=== PATIENT | male | born 1945 | race Caucasian/White ===

== ENCOUNTER → 2018-10-09 | Outpatient (CLI) | payer MEDICARE, OTHER ==
[~2018-10-09] MED LIST: ASPI81EC PO; Dilaudid 2 mg Ta2 MG PO; GABA600 PO; HYDCHL25 PO; INSR10I SUBQ; INSULANI SUBQ; LISI20 PO; MAGOXI400 PO; METF500C PO; MULVITMINF PO; Norco 5-325 Ta1 EACH PO; POTCHL10ER PO; PRAV20 PO; Prednisone20 MG PO; SULTRIDS PO; Valium5 MG PO; Zithromax250 MG PO
== END | disposition home or self-care (01) ==
LOC: PLD 08:22 → LAB SHORT 08:22
DX: C44.319 Basal cell carcinoma of skin of other parts of face (principal)
CPT/HCPCS: 88305

== ENCOUNTER → 2018-11-05 | Outpatient (CLI) | payer MEDICARE, OTHER | END | disposition home or self-care (01) | LOC: LAB SHORT 07:13 → PLD 07:13 | DX: C44.310 Basal cell carcinoma of skin of unspecified parts of face (principal) | CPT/HCPCS: 88305 ==

== ENCOUNTER 2019-04-02 10:46 | Emergency (ER) | payer MEDICARE, OTHER ==
[~2019-04-02] VITALS: Ht 182.9 cm; Wt 122.5 kg
[~2019-04-02 10:46] MED LIST changes: +ENTRESTO 49 MG1 EACH PO; +INSULANPEN; +METO50ER PO; +OMEPRAZOLE MAGN20 MG PO; +PROB500 PO; +STIOLTO RESPIMAT4 GM IH; +TAMS.4ER PO; +TORSE20 PO
[2019-04-02 11:16] LABS: Hematocrit 40.1 % (37.0-53.0); Hemoglobin 13.6 g/dL (13.5-17.5); Mean Corpuscular HGB 31.3 pg (26.0-34.0); Mean Corpuscular HGB Conc 33.9 g/dL (31.5-36.5); Mean Corpuscular Volume 92 fL (80-100); Mean Platelet Volume 10.3 fL (9.1-12.4); Platelet Count 141 K/mm3 (150-400); RDW Coefficient Variation 13.9 % (11.7-14.2); RDW Standard Deviation 46.7 fL (35.1-46.3); Red Blood Cell Count 4.34 M/mm3 (4.30-5.90); White Blood Cell Count 6.62 K/mm3 (4.00-11.30)
[2019-04-02 11:34] LABS: Bun/Creatinine Ratio 24.4 (12.0-20.0); Calcium, Blood 9.1 mg/dL (8.5-10.1); Creatinine, Blood 1.64 mg/dL (0.60-1.20); Potassium, Blood 4.3 mmol/L (3.5-5.5)
[2019-04-02] MEDS ORDERED: Motion Sickness25 M4 PO (11:51)
== END 2019-04-02 12:07 | disposition home or self-care (01) ==
LOC: ER 10:46
PROVIDERS: Emergency Medicine
DX: K64.9 Unspecified hemorrhoids (principal); R42 Dizziness and giddiness; E11.9 Type 2 diabetes mellitus without complications; J44.9 Chronic obstructive pulmonary disease, unspecified; I10 Essential (primary) hypertension; E78.5 Hyperlipidemia, unspecified; Z90.49 Acquired absence of other specified parts of digestive tract; Z87.891 Personal history of nicotine dependence; Z79.4 Long term (current) use of insulin; Z79.899 Other long term (current) drug therapy
CPT/HCPCS: 36415; 46600; 80048; 85027; 99283-25

== ENCOUNTER 2019-04-15 10:56 | Emergency (ER) | payer MEDICARE, OTHER ==
[~2019-04-15] VITALS: Ht 182.9 cm; Wt 122.5 kg
[~2019-04-15 10:56] MED LIST changes: +Motion Sickness25 M4 PO
[2019-04-15 13:10] LABS: Source, Urine Clean Catch
[2019-04-15 13:14] LABS: Bilirubin, Urine Neg (Neg); Blood, Urine Neg (Neg); Glucose Qualitative, Urine Neg (Neg); Ketones, Urine Neg (Neg); Leukocyte Esterase, Urine Neg (Neg); Nitrite, Urine Neg (Neg); Protein, Urine Neg (Neg); Specific Gravity, Urine 1.015 (1.003-1.022); Urobilinogen, Urine NORM (Normal)
[2019-04-15 13:25] LABS: Appearance, Urine Clear (Clear); Color, Urine Yellow (P-Yellow)
== END 2019-04-15 15:05 | disposition home or self-care (01) ==
LOC: ER 10:56
PROVIDERS: Emergency Medicine
DX: S00.211A Abrasion of right eyelid and periocular area, initial encounter (principal); S60.811A Abrasion of right wrist, initial encounter; E11.9 Type 2 diabetes mellitus without complications; I10 Essential (primary) hypertension; Z88.5 Allergy status to narcotic agent; Z87.891 Personal history of nicotine dependence; W01.0XXA Fall on same level from slipping, tripping and stumbling without subsequent striking against object, initial encounter
CPT/HCPCS: 71046; 73100; 81003; 99284-25; A9270-GY

== ENCOUNTER 2019-10-06 06:22 | Emergency (ER) | payer MEDICARE, OTHER ==
[~2019-10-06] VITALS: Ht 182.9 cm; Wt 113.4 kg
[2019-10-06] MEDS ORDERED: Cephalexin500 MG PO (07:19)
[2019-10-06] MEDS ORDERED: Naprosyn500 MG PO (07:19)
== END 2019-10-06 07:43 | disposition home or self-care (01) ==
LOC: ER 06:22
DX: M70.41 Prepatellar bursitis, right knee (principal); I10 Essential (primary) hypertension; E11.9 Type 2 diabetes mellitus without complications; Z88.5 Allergy status to narcotic agent; Z87.891 Personal history of nicotine dependence
CPT/HCPCS: 29505; 99283-25; A9270-GY

== ENCOUNTER 2020-03-19 08:14 | Day surgery (SDC) | payer MEDICARE, OTHER ==
[~2020-03-19] VITALS: Ht 182.9 cm; Wt 122.9 kg
[~2020-03-19 08:14] MED LIST changes: +ALBU2.5V5; +ALBU90OI; +Cephalexin500 MG PO; +ENTRESTO 49 MG1 EACH; +FINA5; +Flonase 0.05% N16 GM; +METFORMIN ER1000 MG; +METO50ER; +Naprosyn500 MG PO; +OMEP20ER; +PROB500; +STIOLTO RESPIMAT4 GM; +TAMS.4ER; +TORSE20
[2020-03-19] MEDS ORDERED: Humulin N100 UNIT/1 INJ (09:02)
[2020-03-19] MEDS ORDERED: ALOGLIPTIN6.25 MG PO (09:37)
--- NOTE | 2020-03-19 10:46 | NUR ---
03/19/20 1046 Doug Rayo PLEDGETS SOAKED IN 30 MG EPI FOR PACKING.
== END 2020-03-19 12:39 | disposition home or self-care (01) ==
LOC: ORSCSDS 08:14
PROVIDERS: Otolaryngology
PROC: 09TL0ZZ Resection of Nasal Turbinate, Open Approach (ICD-10-PCS; principal; 2020-03-19 09:30)
PROC: 09BM0ZZ Excision of Nasal Septum, Open Approach (ICD-10-PCS; principal; 2020-03-19 09:30)
DX: J34.2 Deviated nasal septum (principal); J34.3 Hypertrophy of nasal turbinates; G47.33 Obstructive sleep apnea (adult) (pediatric); E11.9 Type 2 diabetes mellitus without complications; N18.3 Chronic kidney disease, stage 3 (moderate); J44.9 Chronic obstructive pulmonary disease, unspecified; Z87.891 Personal history of nicotine dependence; Z79.4 Long term (current) use of insulin; Z79.84 Long term (current) use of oral hypoglycemic drugs; E66.01 Morbid (severe) obesity due to excess calories; Z68.36 Body mass index [BMI] 36.0-36.9, adult; Z79.899 Other long term (current) drug therapy
CPT/HCPCS: 82947; J1100; J2001; J2405; J2704; J3010; J7120

== ENCOUNTER 2020-09-08 09:05 | Emergency (ER) | payer OTHER, MEDICARE ==
[~2020-09-08] VITALS: Ht 182.9 cm; Wt 117.9 kg
[~2020-09-08 09:05] MED LIST changes: -ALBU90OI; +ALBU90OI INH; +ALOGLIPTIN6.25 MG PO; -ENTRESTO 49 MG1 EACH; -FINA5; +FINA5 PO; +FLUT.05NI; -Flonase 0.05% N16 GM; +HUMULIN N100 UNIT/6 SC; -METO50ER; +STIOLTO RESPIMAT4 G1 INH; -STIOLTO RESPIMAT4 GM; -TAMS.4ER; -TORSE20
[2020-09-08 09:42] LABS: BASOPHILS ABSOLUTE AUTO 0.02 K/mm3 (0.00-0.23); BASOPHILS PERCENT AUTO 1 % (0-2); EOSINOPHILS ABSOLUTE AUTO 0.03 K/mm3 (0.00-0.68); EOSINOPHILS PERCENT AUTO 1 % (0-6); Hematocrit 35.7 % (37.0-53.0); Hemoglobin 11.9 g/dL (13.5-17.5); IMMATURE GRAN ABSOLUTE AUTO 0.01 K/mm3 (0.00-0.10); IMMATURE GRAN PERCENT AUTO 0 % (0-1); LYMPHOCYTES ABSOLUTE AUTO 0.71 K/mm3 (0.84-5.20); LYMPHOCYTES PERCENT AUTO 19 % (21-46); MONOCYTES ABSOLUTE AUTO 0.49 K/mm3 (0.16-1.47); MONOCYTES PERCENT AUTO 13 % (4-13); Mean Corpuscular HGB 31.1 pg (26.0-34.0); Mean Corpuscular HGB Conc 33.3 g/dL (31.5-36.5); Mean Corpuscular Volume 93 fL (80-100); Mean Platelet Volume 9.7 fL (9.1-12.4); NEUTROPHILS PERCENT AUTO 67 % (41-73); Platelet Count 100 K/mm3 (150-400); RDW Coefficient Variation 14.6 % (11.7-14.2); RDW Standard Deviation 50.4 fL (35.1-46.3); Red Blood Cell Count 3.83 M/mm3 (4.30-5.90); White Blood Cell Count 3.76 K/mm3 (4.00-11.30)
[2020-09-08 10:01] LABS: Alanine Aminotransfer (ALT/SGP 38 U/L (12-78); Albumin, Blood 3.4 g/dL (3.4-5.0); Alk Phos 50 U/L (50-136); Anion Gap 7 mmol/L (6-16); Aspartate Aminotrans (AST/SGOT 21 U/L (12-37); Bilirubin, Total 0.4 mg/dL (0.1-1.0); Blood Urea Nitrogen 60 mg/dL (8-24); Bun/Creatinine Ratio 26.4 (12.0-20.0); CO2, Blood 27 mmol/L (21-32); Calcium, Blood 8.7 mg/dL (8.5-10.1); Chloride, Blood 102 mmol/L (98-108); Creatinine, Blood 2.27 mg/dL (0.60-1.20); Globulin, Blood 3.5 g/dL (2.2-4.0); Glomerular Filtration Rate 30 (60-); Glucose, Blood 118 mg/dL (70-99); Sodium, Blood 136 mmol/L (136-145); Total Protein, Blood 6.9 g/dL (6.4-8.2); Troponin I <0.015 ng/mL (0.000-0.040)
[2020-09-11] MEDS ORDERED: ASPI81CH PO (17:19)
== END 2020-09-08 12:16 | disposition home or self-care (01) ==
LOC: ER 09:05
PROVIDERS: Emergency Medicine
DX: U07.1 COVID-19 (principal); J40 Bronchitis, not specified as acute or chronic; D72.819 Decreased white blood cell count, unspecified; D69.6 Thrombocytopenia, unspecified; I11.0 Hypertensive heart disease with heart failure; I50.9 Heart failure, unspecified; J44.9 Chronic obstructive pulmonary disease, unspecified; E11.9 Type 2 diabetes mellitus without complications; Z87.891 Personal history of nicotine dependence; Z79.4 Long term (current) use of insulin; Z79.899 Other long term (current) drug therapy; Z88.5 Allergy status to narcotic agent; Z88.8 Allergy status to other drugs, medicaments and biological substances
CPT/HCPCS: 36415; 71046; 80053; 82947; 83880; 84484; 85025; 93005; 93010; 96360; 99285-25; J7030; U0004

== ENCOUNTER 2020-09-10 10:38 | Inpatient (IN) | payer OTHER, MEDICARE ==
[~2020-09-10] VITALS: Ht 182.9 cm; Wt 120.0 kg
[2020-09-10 11:37] LABS: BASOPHILS ABSOLUTE AUTO 0.01 K/mm3 (0.00-0.23); BASOPHILS PERCENT AUTO 0 % (0-2); EOSINOPHILS PERCENT AUTO 0 % (0-6); Hematocrit 37.9 % (37.0-53.0); Hemoglobin 12.1 g/dL (13.5-17.5); IMMATURE GRAN ABSOLUTE AUTO 0.01 K/mm3 (0.00-0.10); IMMATURE GRAN PERCENT AUTO 0 % (0-1); LYMPHOCYTES ABSOLUTE AUTO 0.61 K/mm3 (0.84-5.20); LYMPHOCYTES PERCENT AUTO 23 % (21-46); MONOCYTES ABSOLUTE AUTO 0.31 K/mm3 (0.16-1.47); MONOCYTES PERCENT AUTO 12 % (4-13); Mean Corpuscular HGB 30.3 pg (26.0-34.0); Mean Corpuscular HGB Conc 31.9 g/dL (31.5-36.5); Mean Corpuscular Volume 95 fL (80-100); Mean Platelet Volume 10.2 fL (9.1-12.4); NEUTROPHILS ABSOLUTE AUTO 1.76 K/mm3 (1.96-9.15); NEUTROPHILS PERCENT AUTO 65 % (41-73); Platelet Count 94 K/mm3 (150-400); RDW Coefficient Variation 14.6 % (11.7-14.2); RDW Standard Deviation 51.9 fL (35.1-46.3)
[2020-09-10 11:49] LABS: Alanine Aminotransfer (ALT/SGP 40 U/L (12-78); Albumin, Blood 3.2 g/dL (3.4-5.0); Albumin/Globulin Ratio 0.8 (0.8-1.8); Alk Phos 50 U/L (50-136); Anion Gap 6 mmol/L (6-16); Aspartate Aminotrans (AST/SGOT 42 U/L (12-37); Bilirubin, Total 0.3 mg/dL (0.1-1.0); Blood Urea Nitrogen 59 mg/dL (8-24); Bun/Creatinine Ratio 28.2 (12.0-20.0); CO2, Blood 28 mmol/L (21-32); Calcium, Blood 8.2 mg/dL (8.5-10.1); Chloride, Blood 104 mmol/L (98-108); Creatinine, Blood 2.09 mg/dL (0.60-1.20); Globulin, Blood 3.8 g/dL (2.2-4.0); Glomerular Filtration Rate 33 (60-); Glucose, Blood 158 mg/dL (70-99); Potassium, Blood 4.6 mmol/L (3.5-5.5); Sodium, Blood 138 mmol/L (136-145); Troponin I <0.015 ng/mL (0.000-0.040)
--- NOTE | 2020-09-10 17:30 | NUR ---
PATIENT ARRIVED FROM ED VIA GURNEY, TRANSFERED INDEPENDENTLY. ON 2 L NASAL CANNULA, NO SIGNS OF ACUTE DISTRESS, PATIENT DENIES CHEST PAIN. PATIENT ENDORSES FEELING OVERALL "NOT GOOD", PATIENT AGREED TO TRY TYLENOL. PATIENT ENDORSED FEELING SOME NAUSEA THIS SHIFT, STATES THAT HE HAS NOT BEEN ABLE TO EAT FOR THE PAST FEW DAYS. PATIENT IS PLEASANT, ALERT AND ORIENTED. INCREASED WORK OF BREATHING NOTED WITH ACTIVITY, O2 SAT MAINTAINED ON 90S. PATIENT DENIES CHEST PAIN, NO SIGNS OF ACUTE DISTRESS, WCTM.
[2020-09-11 04:13] LABS: BASOPHILS PERCENT AUTO 0 % (0-2); EOSINOPHILS PERCENT AUTO 0 % (0-6); Hematocrit 34.9 % (37.0-53.0); Hemoglobin 11.2 g/dL (13.5-17.5); IMMATURE GRAN ABSOLUTE AUTO 0.01 K/mm3 (0.00-0.10); IMMATURE GRAN PERCENT AUTO 0 % (0-1); LYMPHOCYTES ABSOLUTE AUTO 0.44 K/mm3 (0.84-5.20); LYMPHOCYTES PERCENT AUTO 17 % (21-46); MONOCYTES ABSOLUTE AUTO 0.29 K/mm3 (0.16-1.47); MONOCYTES PERCENT AUTO 11 % (4-13); Mean Corpuscular HGB 30.1 pg (26.0-34.0); Mean Corpuscular HGB Conc 32.1 g/dL (31.5-36.5); Mean Corpuscular Volume 94 fL (80-100); Mean Platelet Volume 9.8 fL (9.1-12.4); NEUTROPHILS ABSOLUTE AUTO 1.89 K/mm3 (1.96-9.15); NEUTROPHILS PERCENT AUTO 72 % (41-73); Platelet Count 99 K/mm3 (150-400); RDW Coefficient Variation 14.6 % (11.7-14.2); Red Blood Cell Count 3.72 M/mm3 (4.30-5.90); White Blood Cell Count 2.63 K/mm3 (4.00-11.30)
[2020-09-11 04:33] LABS: Albumin, Blood 3.1 g/dL (3.4-5.0); Albumin/Globulin Ratio 0.9 (0.8-1.8); Bilirubin, Total 0.4 mg/dL (0.1-1.0); Bun/Creatinine Ratio 33.2 (12.0-20.0); Calcium, Blood 7.9 mg/dL (8.5-10.1); Creatinine, Blood 2.14 mg/dL (0.60-1.20); Globulin, Blood 3.4 g/dL (2.2-4.0); Magnesium, Blood 2.6 mg/dL (1.6-2.4); Total Protein, Blood 6.5 g/dL (6.4-8.2)
--- NOTE | 2020-09-11 05:21 | NUR ---
SHIFT SUMMARY PT RESTED COMFORTABLY THROUGH NIGHT. ALERT AND ORIENTED. PT RUNNING NSR ON TELE. PT DOES C/O OF SOB STILL. WEARING 4LNC - SATS >90%. PT DOES HAVE SOME CONGESTION - BUT NOTHING ABLE TO COME UP FOR SPUTUM COLLECTION. BLOOD SUGAR 381 - GAVE THE 60U HUMULIN N. AMBULATING FREQUENTLY IN ROOM AND GETTING TO BATHROOM INDEPENDENTLY. VOIDING. NO BM. NO C/O PAIN. CALL LIGHT WITHIN REACH, BED IN LOWEST POSITION. WILL CONTINUE TO MONITOR.
--- NOTE | 2020-09-11 11:40 | NUR ---
upon receiving an admit referral for spiritual care, I visit patient in full PPE. Patient is sitting on EOB and alert. Patient tells me about his Co-morbidities and his concerns with COVID diagnosis. Patient talks about his family support system and his stress over the care of his little dog (he is a audrey-wienie and he is going to patient's mother's house who has huge dogs). Patient also expresses his concerns about his absolute adherence to mask wearing and hand washing and his frustration with the many who don't and who may have infected him. I listen empathically and provide companionship and prayer. Patient responds well and shows signs of an elevated mood. I will continue to remain available to patient and family.
--- NOTE | 2020-09-11 15:37 | NUR ---
Alen has been pleasantly conversant, states he doesn't know how he got COVID because he is so diligent about wearing a mask, and following all of the guidelines to prevent dat the disease. He does still get hypoxic when he walks to the bathroom without oxygen, or walks around the room without it. STates that his spo2 he found to be 79% after walking to the bathroom without wearing his oxygen. Extension tubing provided for his oxygen and the pt was strongly encouraged to keep it on all the time. He has an occasional productive cough with small amounts of white sputum. Lung sounds are clear no adventitious sounds noted. Independent with ADLs. Good appetite. No complaints. STates he has received good care while he has been here.
--- NOTE | 2020-09-11 15:48 | NUR ---
Dr. Hall here to see the patient. Pt states that he lost his balance and ruffled the vertical blinds in the window. States that he did not fall down all the way, but that he did lose his balance because he was dizzy. STrongly encouraged the pt to call to have staff assist whenever he gets up. The pt verbalized understanding of this.
[2020-09-11] MEDS ORDERED: Aspirin EC81 MG PO (17:19)
--- NOTE | 2020-09-12 05:24 | NUR ---
END OF SHIFT SUMMARY NO ACUTE CHANGES THIS SHIFT. VSS. PT REMAINS AXO, SR-SB W/ BBB. HAS BEEN TITRATED FROM 4LNC TO 3LNC, SPO2 >94%. LUNGA CLEAR TO DIM WITH OCCASIONAL FINE CRACKLES IN L LUNG BASE. OTHERWISE, PT INDEPENDENT IN ROOM. MANAGES O2 TUBING BYSELF WELL. PT PLEASANT AND COOPERATIVE. REMAINS IN ISOLATION FOR COVID 19 POSITIVE. WILL CONTINUE TO MONITOR UNTIL SHIFT CHANGE.
[2020-09-12 05:27] LABS: BASOPHILS PERCENT AUTO 0 % (0-2); EOSINOPHILS PERCENT AUTO 0 % (0-6); Hematocrit 36.7 % (37.0-53.0); Hemoglobin 11.6 g/dL (13.5-17.5); IMMATURE GRAN ABSOLUTE AUTO 0.01 K/mm3 (0.00-0.10); IMMATURE GRAN PERCENT AUTO 0 % (0-1); LYMPHOCYTES ABSOLUTE AUTO 0.62 K/mm3 (0.84-5.20); LYMPHOCYTES PERCENT AUTO 17 % (21-46); MONOCYTES ABSOLUTE AUTO 0.39 K/mm3 (0.16-1.47); MONOCYTES PERCENT AUTO 10 % (4-13); Mean Corpuscular HGB 29.9 pg (26.0-34.0); Mean Corpuscular HGB Conc 31.6 g/dL (31.5-36.5); Mean Corpuscular Volume 95 fL (80-100); Mean Platelet Volume 9.8 fL (9.1-12.4); NEUTROPHILS ABSOLUTE AUTO 2.74 K/mm3 (1.96-9.15); NEUTROPHILS PERCENT AUTO 73 % (41-73); Platelet Count 128 K/mm3 (150-400); RDW Coefficient Variation 14.6 % (11.7-14.2); Red Blood Cell Count 3.88 M/mm3 (4.30-5.90); White Blood Cell Count 3.76 K/mm3 (4.00-11.30)
[2020-09-12 05:50] LABS: Bun/Creatinine Ratio 38.5 (12.0-20.0); Calcium, Blood 8.4 mg/dL (8.5-10.1); Creatinine, Blood 2.13 mg/dL (0.60-1.20); Potassium, Blood 4.9 mmol/L (3.5-5.5)
--- NOTE | 2020-09-12 16:57 | NUR ---
SHIFT SUMMARY PATIENT CHANGED TO MED STATUS. PATIENT HAS BEEN SINUS EVIN IN THE 40'S. DR. GARIBAY NOTIFIED OF TELEMETRY CHANGES AND SHOWN PRINTOUT. NO ORDERS AT THIS TIME. PATIENT HAS BEEN A SBA IN THE ROOM. PATIENT ON 4L O2 VIA NASAL CANNULA. PATIENT HAS DENIED PAIN. CALL LIGHT WITHIN PATIENT REACH.
[2020-09-13 04:23] LABS: BASOPHILS PERCENT AUTO 0 % (0-2); EOSINOPHILS PERCENT AUTO 0 % (0-6); Hematocrit 37.9 % (37.0-53.0); Hemoglobin 12.5 g/dL (13.5-17.5); IMMATURE GRAN ABSOLUTE AUTO 0.01 K/mm3 (0.00-0.10); IMMATURE GRAN PERCENT AUTO 0 % (0-1); LYMPHOCYTES ABSOLUTE AUTO 0.63 K/mm3 (0.84-5.20); LYMPHOCYTES PERCENT AUTO 15 % (21-46); MONOCYTES ABSOLUTE AUTO 0.43 K/mm3 (0.16-1.47); MONOCYTES PERCENT AUTO 10 % (4-13); Mean Corpuscular HGB 30.5 pg (26.0-34.0); Mean Corpuscular Volume 92 fL (80-100); Mean Platelet Volume 9.7 fL (9.1-12.4); NEUTROPHILS ABSOLUTE AUTO 3.27 K/mm3 (1.96-9.15); NEUTROPHILS PERCENT AUTO 75 % (41-73); Platelet Count 128 K/mm3 (150-400); RDW Coefficient Variation 14.4 % (11.7-14.2); RDW Standard Deviation 48.8 fL (35.1-46.3); White Blood Cell Count 4.34 K/mm3 (4.00-11.30)
[2020-09-13 04:40] LABS: Bun/Creatinine Ratio 39.1 (12.0-20.0); Calcium, Blood 8.2 mg/dL (8.5-10.1); Creatinine, Blood 1.92 mg/dL (0.60-1.20); Potassium, Blood 4.6 mmol/L (3.5-5.5)
--- NOTE | 2020-09-13 04:45 | NUR ---
END OF SHIFT SUMMARY NO ACUTE CHANGES THIS SHIFT. REMAINS IN ISOLATION FOR COVID. AXO. SR TO SB 50'S TO 70'S. BP STABLE. PT REMAINS ON 4LNC, SPO2 >94%. LUNG SOUNDS CLEAR WITH OCCASIONAL WHEEZING. INDEPENDENT IN ROOM. THERWISE, PT STATES "GETTING MORE SLEEP HERE THAN WHAT HE DOES AT HOME". WILL CONTINUE TO MONITOR UNTIL SHIFT CHANGE.
--- NOTE | 2020-09-13 19:15 | NUR ---
ASSUMED CARE REPORT RECEIVED FROM ROSALIO URIARTE. PT SITTING UP IN BED WATCHING TV, NO ACUTE DISTRESS OBSERVED. DENIES CHEST PAIN. CALL LIGHT WITHIN REACH. PT REMAINS ON ISOLATION
--- NOTE | 2020-09-13 19:23 | NUR ---
Alen was pleasant, cheerful and without complaints today. Ambulatory in the room and to the bathroom on 4 l/min of oxygen. Very occasional cough, little sputum production. Lungs have very faint occasional wheezing, but otherwise clear. Excellent appetite, voiding and had a bowel movement today. States that he is looking forward to going home tomorrow after he is finished with the IV antiviral medication.
--- NOTE | 2020-09-14 00:30 | NUR ---
PT REQUESTED HELP, APPEARS VERY ANXIOUS. MILD DYSPNEA, SATS AT 91% WITH O2@4LPM. APPARENTLY PT WAS AMBULATING AT BEDSIDE, DROPPED WATER CUP, AND BECAME DYSPNIC. REASSURENCE GIVEN AND COACHED PT ON ALLOWING FOR PERIODS OF REST BETWEEN ACTIVITIES. WILL CONTINUE TO MONITOR
[2020-09-14 04:55] LABS: BASOPHILS ABSOLUTE AUTO 0.01 K/mm3 (0.00-0.23); BASOPHILS PERCENT AUTO 0 % (0-2); EOSINOPHILS PERCENT AUTO 0 % (0-6); Hematocrit 41.1 % (37.0-53.0); Hemoglobin 13.3 g/dL (13.5-17.5); IMMATURE GRAN ABSOLUTE AUTO 0.03 K/mm3 (0.00-0.10); IMMATURE GRAN PERCENT AUTO 1 % (0-1); LYMPHOCYTES ABSOLUTE AUTO 0.51 K/mm3 (0.84-5.20); LYMPHOCYTES PERCENT AUTO 12 % (21-46); MONOCYTES ABSOLUTE AUTO 0.49 K/mm3 (0.16-1.47); MONOCYTES PERCENT AUTO 11 % (4-13); Mean Corpuscular HGB 30.3 pg (26.0-34.0); Mean Corpuscular HGB Conc 32.4 g/dL (31.5-36.5); Mean Corpuscular Volume 94 fL (80-100); Mean Platelet Volume 9.7 fL (9.1-12.4); NEUTROPHILS ABSOLUTE AUTO 3.36 K/mm3 (1.96-9.15); NEUTROPHILS PERCENT AUTO 76 % (41-73); Platelet Count 147 K/mm3 (150-400); RDW Coefficient Variation 14.4 % (11.7-14.2); RDW Standard Deviation 49.7 fL (35.1-46.3); Red Blood Cell Count 4.39 M/mm3 (4.30-5.90)
[2020-09-14 05:21] LABS: Bun/Creatinine Ratio 42.3 (12.0-20.0); Calcium, Blood 8.9 mg/dL (8.5-10.1); Creatinine, Blood 1.94 mg/dL (0.60-1.20); Potassium, Blood 4.4 mmol/L (3.5-5.5)
--- NOTE | 2020-09-14 06:18 | NUR ---
SHIFT SUMMARY NO FURTHER EPISODES OF ANXIETY SINCE 0000 INCIDENT. REMAINED A&O, NO ACUTE DISTRESS. SPO2 IN 90s WITH O2@4LPM. PT STATES HE IS EAGER TO GO HOME, HOWEVER HE IS WORRIED AND FEARFUL SINCE HE WILL BE ALONE. ENCOURAGED PT TO VERBALIZE CONCERNS TO STAFF IN ORDER TO COME UP WITH EFFECTIVE STRATIGIES FOR HOME. DENIED ANY CHEST PAIN THROUGH SHIFT, REMAINED IN ISOLATION.
[2020-09-14] MEDS ORDERED: GUAI600T33 PO (13:41)
[2020-09-15] MEDS ORDERED: SIME80CH PO (10:10)
[2020-09-15] MEDS ORDERED: PROB500 PO (10:11)
== END 2020-09-14 15:25 | disposition home or self-care (01) | DRG 871 ==
LOC: ER 10:38 → ERHOLD 14:16 → PCU 14:16
PROVIDERS: Emergency Medicine; Hospitalist; Nurse Practitioner Acute Care; ADMIT Internal Medicine
PROC: 8E0ZXY6 Isolation (ICD-10-PCS; 2020-09-10)
PROC: XW033E5 Introduction of Remdesivir Anti-infective into Peripheral Vein, Percutaneous Approach, New Technology Group 5 (ICD-10-PCS; principal; 2020-09-11)
DX: A41.89 Other specified sepsis (principal); U07.1 COVID-19; J12.89 Other viral pneumonia; J96.01 Acute respiratory failure with hypoxia; I50.22 Chronic systolic (congestive) heart failure; D61.818 Other pancytopenia; J44.1 Chronic obstructive pulmonary disease with (acute) exacerbation; I13.0 Hypertensive heart and chronic kidney disease with heart failure and stage 1 through stage 4 chronic kidney disease, or unspecified chronic kidney disease; N18.31 Chronic kidney disease, stage 3a; E11.22 Type 2 diabetes mellitus with diabetic chronic kidney disease; N40.0 Benign prostatic hyperplasia without lower urinary tract symptoms; E66.01 Morbid (severe) obesity due to excess calories; Z87.891 Personal history of nicotine dependence; Z79.4 Long term (current) use of insulin; Z79.51 Long term (current) use of inhaled steroids; Z68.35 Body mass index [BMI] 35.0-35.9, adult
CPT/HCPCS: 36415; 71045; 80048; 80053; 82728; 82947; 83605; 83735; 83880; 84145; 84484; 85025; 85379; 87040; 96374; 96375; 99285-25; A9270; A9270-GY; C9113; J0456; J0696; J1100; J1644; J1815; J2405; J7050

== ENCOUNTER 2020-09-15 07:51 | Inpatient (IN) | payer OTHER, MEDICARE ==
[~2020-09-15] VITALS: Ht 188 cm; Wt 116.0 kg
[~2020-09-15 07:51] MED LIST changes: +Aspirin EC81 MG PO; +GUAI600T33 PO
[2020-09-15 10:01] LABS: BASOPHILS ABSOLUTE AUTO 0.01 K/mm3 (0.00-0.23); BASOPHILS PERCENT AUTO 0 % (0-2); EOSINOPHILS ABSOLUTE AUTO 0.01 K/mm3 (0.00-0.68); EOSINOPHILS PERCENT AUTO 0 % (0-6); Hematocrit 38.4 % (37.0-53.0); Hemoglobin 12.9 g/dL (13.5-17.5); IMMATURE GRAN PERCENT AUTO 1 % (0-1); LYMPHOCYTES ABSOLUTE AUTO 1.22 K/mm3 (0.84-5.20); LYMPHOCYTES PERCENT AUTO 11 % (21-46); MONOCYTES ABSOLUTE AUTO 0.97 K/mm3 (0.16-1.47); MONOCYTES PERCENT AUTO 9 % (4-13); Mean Corpuscular HGB 30.6 pg (26.0-34.0); Mean Corpuscular HGB Conc 33.6 g/dL (31.5-36.5); Mean Corpuscular Volume 91 fL (80-100); Mean Platelet Volume 9.6 fL (9.1-12.4); NEUTROPHILS ABSOLUTE AUTO 8.73 K/mm3 (1.96-9.15); NEUTROPHILS PERCENT AUTO 79 % (41-73); Platelet Count 173 K/mm3 (150-400); RDW Coefficient Variation 14.5 % (11.7-14.2); RDW Standard Deviation 49.1 fL (35.1-46.3); Red Blood Cell Count 4.21 M/mm3 (4.30-5.90); White Blood Cell Count 11.04 K/mm3 (4.00-11.30)
[2020-09-15] MEDS ORDERED: SIME80CH PO (10:10)
[2020-09-15] MEDS ORDERED: PROB500 PO (10:11)
[2020-09-15 10:30] LABS: Alanine Aminotransfer (ALT/SGP 87 U/L (12-78); Albumin, Blood 3.5 g/dL (3.4-5.0); Albumin/Globulin Ratio 0.9 (0.8-1.8); Alk Phos 48 U/L (50-136); Anion Gap 9 mmol/L (6-16); Aspartate Aminotrans (AST/SGOT 49 U/L (12-37); Bilirubin, Total 0.5 mg/dL (0.1-1.0); Blood Urea Nitrogen 87 mg/dL (8-24); Bun/Creatinine Ratio 43.9 (12.0-20.0); CO2, Blood 28 mmol/L (21-32); Calcium, Blood 9.4 mg/dL (8.5-10.1); Chloride, Blood 107 mmol/L (98-108); Creatinine, Blood 1.98 mg/dL (0.60-1.20); Globulin, Blood 3.7 g/dL (2.2-4.0); Glomerular Filtration Rate 35 (60-); Glucose, Blood 109 mg/dL (70-99); Potassium, Blood 3.9 mmol/L (3.5-5.5); Sodium, Blood 144 mmol/L (136-145); Total Protein, Blood 7.2 g/dL (6.4-8.2); Troponin I <0.015 ng/mL (0.000-0.040)
--- NOTE | 2020-09-15 13:35 | NUR ---
PT ADMITTED FROM THE ER THIS AFTERNOON. HE WAS DCD FROM PCU YESTERDAY AND REPORTED THAT HE WAS UNBLE TO CARE FOR HIMSELF WHEN HE GOT HOME DUE TO HIS OXYGEN NEEDS. HE WAS ASSISTED TO BED AND DID A RETURN DEMO OF THE USE OF THE CALL LIGHT. HE WAS A STAND BY ASSIST TO USE THE BSC. HES ON AN ADA DIET AND HAS BEVERAGES ALONG WITH HIS PERSONAL ITEMS ON THE BEDSIDE TABLE. HE IS ABLE TO MAKE HIS NEEDS KNOWN AND CALLS FOR HELP WHEN NEEDED.
--- NOTE | 2020-09-15 15:54 | NUR ---
SHIFT SUMMARY PT IS A/O X 4 HE HAS NO C/O PAIN. HIS O2 SATS HAVE BEEN IN THE LOW 90'S AND HE HAS NO S/S OF RESP DISTRESS. PT REITERATED TO NURSING STAFF THAT HE CAME BACK TO THE ER DUE TO THE FACT THAT HE WAS UNABLE TO MEET HIS CARE NEEDS ONCE HE GOT HOME LAST NIGHT. PT IS A STAND BY ASSIST TO THE BSC. HE DOES CALL FOR HELP WHEN NEEDED. HE IS ON THE PHONE WITH A FAMILY MEMBER AND HAS HIS CALL LIGHT IN REACH.
--- NOTE | 2020-09-16 05:05 | NUR ---
SHIFT SUMMARY PT A/O X4 AND SBA TO THE [facility]. PT HAD A MOMENT OF HYPOXIA THIS EVENING WHERE HE EXPERIENCED AN EPISODE OF CONFUSION AND WAS SATTING IN THE LOW 80'S. PT'S O2 TURNED UP TO 6 LITERS FROM 4. PT PLACED ON CONTINUOUS BI-OX AND CURRENTLY 91% ON 6 LITERS. R.T. SUGGESTED PRONING TO THE PT, PRONING IS TOO PAINFUL FOR HIM BUT HE IS ABLE TO MOVE HIMSELF TO HIS SIDE. CURRENTLY RESTING QUIETLY WITH CALL LIGHT IN REACH, VSS.
[2020-09-16 05:59] LABS: Bun/Creatinine Ratio 40.7 (12.0-20.0); Calcium, Blood 9.3 mg/dL (8.5-10.1); Creatinine, Blood 1.82 mg/dL (0.60-1.20); Potassium, Blood 4.2 mmol/L (3.5-5.5)
--- NOTE | 2020-09-16 17:46 | NUR ---
PATIENT IS ALERT AND ORIENTED AND COOPERATIVE WITH CARE.PATIENT IS ON 6L O2 VIA HIGH FLOW NC, HUMIDIFIED. PATIENT C/O DRY NOSE, DR. BUSBY ORDERED HUMIDIFIER AND SALINE NASAL SPRAY. PATIENT SLEPT THROUGHOUT THE DAY. HE SHOWERED THIS EVENING. ON CONTINUOUS PULSE OX WITH O2 SAT 90%-93%. WILL CONTINUE TO MONITOR.
--- NOTE | 2020-09-17 05:38 | NUR ---
SHIFT SUMMARY PT A/O X4 AND PLEASANT. BLOOD GLUCOSE OVER 400 THIS SHIFT. INSULIN ADDED ON A MEDIUM SLIDING SCALE IN ORDER TO PROVIDE ADDITIONAL COVERAGE. PT HAS BEEN RESTING QUIETLY FOR THE MAJORITY OF THE SHIFT. SBA/IND TO THE BSC. CURRENTLY ON 6 LITERS O2 VIA NC. ON CONTINUOUS PULSE OX. VSS; RESTING COMFORTABLLY IN BED WITH CALL LIGHT IN REACH.
[2020-09-17 06:01] LABS: Bun/Creatinine Ratio 44.3 (12.0-20.0); Calcium, Blood 9.3 mg/dL (8.5-10.1); Creatinine, Blood 1.76 mg/dL (0.60-1.20); Potassium, Blood 4.8 mmol/L (3.5-5.5)
--- NOTE | 2020-09-17 06:18 | NUR ---
I AGREE WITH NICK GAN'S ASSESSMENT ON THIS PATIENT.
--- NOTE | 2020-09-17 16:30 | NUR ---
PATIENT IS ALERT AND ORIENTED AND COOPERATIVE WITH CARE. NO COMPLAINTS OF PAIN. DR. BUSBY WEANED THE PATIENT DOWN TO 4L O2 VIA NC. OXYGEN SATS HAVE REMAINED ABOVE 90% TODAY. CONTINUOUS PULSE OX IN PLACE. PATIENT SAT UP IN THE RECLINER TODAY. VSS. WILL CONTINUE TO MONITOR.
--- NOTE | 2020-09-18 04:19 | NUR ---
SHIFT SUMMARY PT A/O X4; PLEASANT AND COOPERATIVE WITH CARE. CURRENTLY ON 4.5 L O2 VIA NC AND SATTING IN THE LOW 90'S. CONT PULSE OX IN PLACE. NEW IV PLACED. DOES NOT C/O ANY PAIN OR DISCOMFORT. VSS; RESTING IN BED COMFORTABLY W/CALL LIGHT IN REACH.
[2020-09-18 06:28] LABS: Bun/Creatinine Ratio 43.8 (12.0-20.0); Calcium, Blood 9.5 mg/dL (8.5-10.1); Creatinine, Blood 1.76 mg/dL (0.60-1.20); Potassium, Blood 4.8 mmol/L (3.5-5.5)
--- NOTE | 2020-09-18 18:10 | NUR ---
SHIFT SUMMARY- PT IS A/O, PLESANT AND COOERATIVE. HE IS EATING AND DRINKING WELL. HE IS RECIEVING O2 VIA NASAL CANNULA. HIS BLOOD SUGARS HAVE BEEN ELEVATED AND REQUIRED COVERAGE THIS SHIFT. HIS O2 SATURATIONS HAVE MAINTAINED IN THE LOW 90'S
--- NOTE | 2020-09-19 03:52 | NUR ---
SUMMARY PT HAD NO ISSUES NOTED. PT HAS SLEPT T/O SHIFT. PT CURRENTLY SLEEPING AND BREATHING EASY. PT CALL LIGHT IN REACH.
[2020-09-19 06:12] LABS: Bun/Creatinine Ratio 46.5 (12.0-20.0); Calcium, Blood 9.7 mg/dL (8.5-10.1); Creatinine, Blood 1.72 mg/dL (0.60-1.20); Potassium, Blood 4.6 mmol/L (3.5-5.5)
--- NOTE | 2020-09-19 18:04 | NUR ---
SHIFT SUMMARY- PT IS A/O, PLESANT AND COOPERATIVE. HE IS EATING AND DRINKING WELL. HE SLEPT FOR MUCH OF THIS SHIFT. HE IS ON RA AND HIS SATURATION HAVE MAINTAINED IN THE 90'S. HE RECIEVED A SHOWER THIS SHIFT AND TOLERATED WELL. HIS BLOOD SUGARS HAVE BEEN ELEVATED AND HE HAS BEEN RECIEVING COVERAGE.
--- NOTE | 2020-09-20 04:25 | NUR ---
SHIFT SUMMARY PT HAS RESTED WELL THIS SHIFT, HE HAS DENIED NEEDS MOST OF THE NIGHT. SATS ARE BEING MAINTAINED ON 4L O2. RESP E/U. STILL VERY SOB WITH EXERTION. VITALS ARE STABLE. NO ACUTE CHANGES IN ASSESSMENT. BED IN LOWEST POSITION, CALL LIGHT WITHIN REACH.
[2020-09-20 04:48] LABS: BASOPHILS ABSOLUTE AUTO 0.01 K/mm3 (0.00-0.23); BASOPHILS PERCENT AUTO 0 % (0-2); EOSINOPHILS ABSOLUTE AUTO 0.06 K/mm3 (0.00-0.68); EOSINOPHILS PERCENT AUTO 1 % (0-6); Hematocrit 40.2 % (37.0-53.0); Hemoglobin 12.7 g/dL (13.5-17.5); IMMATURE GRAN ABSOLUTE AUTO 0.12 K/mm3 (0.00-0.10); IMMATURE GRAN PERCENT AUTO 1 % (0-1); LYMPHOCYTES ABSOLUTE AUTO 0.47 K/mm3 (0.84-5.20); LYMPHOCYTES PERCENT AUTO 5 % (21-46); MONOCYTES ABSOLUTE AUTO 0.71 K/mm3 (0.16-1.47); MONOCYTES PERCENT AUTO 8 % (4-13); Mean Corpuscular HGB 29.5 pg (26.0-34.0); Mean Corpuscular HGB Conc 31.6 g/dL (31.5-36.5); Mean Corpuscular Volume 93 fL (80-100); NEUTROPHILS ABSOLUTE AUTO 7.41 K/mm3 (1.96-9.15); NEUTROPHILS PERCENT AUTO 84 % (41-73); Platelet Count 213 K/mm3 (150-400); RDW Coefficient Variation 14.2 % (11.7-14.2); RDW Standard Deviation 49.1 fL (35.1-46.3); Red Blood Cell Count 4.31 M/mm3 (4.30-5.90); White Blood Cell Count 8.78 K/mm3 (4.00-11.30)
[2020-09-20 05:11] LABS: Albumin, Blood 2.8 g/dL (3.4-5.0); Albumin/Globulin Ratio 0.7 (0.8-1.8); Bilirubin, Total 0.7 mg/dL (0.1-1.0); Bun/Creatinine Ratio 50.7 (12.0-20.0); Calcium, Blood 9.5 mg/dL (8.5-10.1); Creatinine, Blood 1.52 mg/dL (0.60-1.20); Globulin, Blood 3.9 g/dL (2.2-4.0); Potassium, Blood 4.6 mmol/L (3.5-5.5); Total Protein, Blood 6.7 g/dL (6.4-8.2)
--- NOTE | 2020-09-20 16:22 | NUR ---
SHIFT SUMMARY- PT IS A/O, PLESANT AND COOPERATIVE. HE IS EATING AND DRINKING WELL. AMBULATING TO THE RESTROOM. HE IS ON 4L 02 VIA NASAL CANNULA. HIS RESPIRATIONS ARE EVEN AND UNLABORED. BED IS IN LOW POSITION CALL LIGHT WITHIN REACH.
--- NOTE | 2020-09-21 06:28 | NUR ---
SHIFT SUMMARY PT IS A 75 Y/O MALE, ADMITTED FOR COVID & HYPOXIA. HE IS A&O X 4, INDEPENDENT IN THE ROOM. PT DID REPORT DYSPNEA WITH EXERTION, AND REMAINS ON HIS HOME DOSE OF 4L VIA NC, SATTING APPROXIMATELY 90-91%. ALL OTHER VITALS STABLE. NO C/O PAIN OR NAUSEA. NO ACUTE CHANGES IN PT CONDITION NOTED DURING THE NIGHT. WILL CONTINUE TO MONITOR AND TREAT PER EMAR UNTIL HAND OFF TO DAY SHIFT RN.
[2020-09-21] MEDS ORDERED: DEXA6 PO (15:40)
--- NOTE | 2020-09-21 17:05 | NUR ---
SHIFT SUMMARY ALEJA LEFT WITH HIS DAUGHTER. HOME OXYGEN EVAL DONE PRIOR TO LEAVING, PT ALREADY HAS HOME OXYGEN. EDUCATION GIVEN TO PT, PIV REMOVED. [facility], UNABLE TO MAKE F/U APPT, LEFT HIS NAME AT FRONT FOR CM TO CALL AND MAKE HIM AN APPT. PT DECLINED US TO TAKE HIM DOWN, DAUGHTER WHEELED HIM DOWN. MEDS FAXED TO [facility].
== END 2020-09-21 17:04 | disposition home or self-care (01) | DRG 177 ==
LOC: ER 07:51 → MEDS 07:52 → ER 10:50 → MEDS 10:50 → ER 11:29 → MEDS 12:46
PROVIDERS: Internal Medicine; Physician Assistant; ADMIT Internal Medicine
PROC: 3E0333Z Introduction of Anti-inflammatory into Peripheral Vein, Percutaneous Approach (ICD-10-PCS; principal; 2020-09-16)
DX: U07.1 COVID-19 (principal); J12.9 Viral pneumonia, unspecified; J96.01 Acute respiratory failure with hypoxia; I13.0 Hypertensive heart and chronic kidney disease with heart failure and stage 1 through stage 4 chronic kidney disease, or unspecified chronic kidney disease; I50.22 Chronic systolic (congestive) heart failure; J44.0 Chronic obstructive pulmonary disease with (acute) lower respiratory infection; G93.49 Other encephalopathy; E11.22 Type 2 diabetes mellitus with diabetic chronic kidney disease; E66.01 Morbid (severe) obesity due to excess calories; K21.9 Gastro-esophageal reflux disease without esophagitis; N40.0 Benign prostatic hyperplasia without lower urinary tract symptoms; Z87.891 Personal history of nicotine dependence; Z99.81 Dependence on supplemental oxygen; N18.31 Chronic kidney disease, stage 3a; Z68.32 Body mass index [BMI] 32.0-32.9, adult
CPT/HCPCS: 36415; 71045; 80048; 80053; 82947; 83880; 84484; 85025; 93005; 93010; 94761; 94762; 96360; 96372; 99285-25; A9270; A9270-GY; G0378; J1650; J1815; J1940; J7030

== ENCOUNTER 2020-09-22 12:22 | Observation (INO) | payer OTHER, MEDICARE ==
[~2020-09-22] VITALS: Ht 182.9 cm; Wt 111.6 kg
[~2020-09-22 12:22] MED LIST changes: +DEXA6 PO; +SIME80CH PO
[2020-09-22 14:00] LABS: BASOPHILS ABSOLUTE AUTO 0.01 K/mm3 (0.00-0.23); BASOPHILS PERCENT AUTO 0 % (0-2); EOSINOPHILS ABSOLUTE AUTO 0.09 K/mm3 (0.00-0.68); EOSINOPHILS PERCENT AUTO 1 % (0-6); Hematocrit 37.2 % (37.0-53.0); Hemoglobin 12.1 g/dL (13.5-17.5); IMMATURE GRAN ABSOLUTE AUTO 0.25 K/mm3 (0.00-0.10); IMMATURE GRAN PERCENT AUTO 2 % (0-1); LYMPHOCYTES ABSOLUTE AUTO 0.91 K/mm3 (0.84-5.20); LYMPHOCYTES PERCENT AUTO 6 % (21-46); MONOCYTES PERCENT AUTO 9 % (4-13); Mean Corpuscular HGB Conc 32.5 g/dL (31.5-36.5); Mean Corpuscular Volume 92 fL (80-100); Mean Platelet Volume 10.4 fL (9.1-12.4); NEUTROPHILS ABSOLUTE AUTO 11.87 K/mm3 (1.96-9.15); NEUTROPHILS PERCENT AUTO 82 % (41-73); Platelet Count 237 K/mm3 (150-400); RDW Coefficient Variation 14.3 % (11.7-14.2); RDW Standard Deviation 48.3 fL (35.1-46.3); Red Blood Cell Count 4.04 M/mm3 (4.30-5.90); White Blood Cell Count 14.43 K/mm3 (4.00-11.30)
[2020-09-22 14:14] LABS: Bun/Creatinine Ratio 39.3 (12.0-20.0); Calcium, Blood 9.6 mg/dL (8.5-10.1); Creatinine, Blood 2.24 mg/dL (0.60-1.20)
--- NOTE | 2020-09-22 17:47 | NUR ---
PATIENT ARRIVED FROM ED THIS HALF OF SHIFT, NO SIGNS OF ACUTE DISTRESS. PATIENT IS ALERT AND ORIENTED, DENIES CHEST PAIN. PATIENT ARRIVED ON 4L O2 NASAL CANNULA, IN MID-TO-HIGH 90S O2, WILL LIKELY TOLERATE WEANING DOWN. PATIENT ABLE TO AMBULATE INDEPENDENTLY FROM GURNEY TO BED. PATIENT DENIES FEELING DIZZY.
[2020-09-23 04:08] LABS: Hematocrit 38.4 % (37.0-53.0); Hemoglobin 12.5 g/dL (13.5-17.5); Mean Corpuscular HGB 29.7 pg (26.0-34.0); Mean Corpuscular HGB Conc 32.6 g/dL (31.5-36.5); Mean Corpuscular Volume 91 fL (80-100); Platelet Count 213 K/mm3 (150-400); RDW Coefficient Variation 14.1 % (11.7-14.2); RDW Standard Deviation 47.5 fL (35.1-46.3); Red Blood Cell Count 4.21 M/mm3 (4.30-5.90); White Blood Cell Count 9.11 K/mm3 (4.00-11.30)
[2020-09-23 04:27] LABS: Bun/Creatinine Ratio 47.4 (12.0-20.0); Calcium, Blood 9.1 mg/dL (8.5-10.1); Creatinine, Blood 1.94 mg/dL (0.60-1.20); Potassium, Blood 4.9 mmol/L (3.5-5.5)
--- NOTE | 2020-09-23 08:11 | NUR ---
SHIFT SUMMARY PT HAD A VERY QUIET UNEVENTFUL NIGHT. BP SLOWLY CLIMBED T/O THE NIGHT FROM 106 TO 124 SYSTOLIC BY AM. HR WAS EVIN IN THE HIGH 50'S. O2 SATS IN THE HIGH 90'S ON 4LPM VIA NC, PT STATED NEEDING MORE WHEN AMBULATING BUT O2 SATS REMAINED HIGH ON 4LPM. CAN DECREASE O2 DELIEVERY. WILL CONTINUE TO MONITOR UNTIL SHIFT CHANGE.
--- NOTE | 2020-09-23 12:06 | NUR ---
Patient up to Ambulate independently. Gait steady. Discharge instructions reviewed with patient. Patient verbalizes understanding. Copy given to patient to take home. Patient States Post-Procedure ride home has been arranged WITH SISTER.
--- NOTE | 2020-09-23 12:36 | NUR ---
1210 DISCHARGED TO HOME, PT DENIES, PAIN, SOB AND STATES HE FEELS READY TO GO
== END 2020-09-23 12:19 | disposition home or self-care (01) ==
LOC: ER 12:22 → PCU 12:23 → ERHOLD 12:23 → PCU 17:05
PROVIDERS: Emergency Medicine; ADMIT Internal Medicine
DX: R00.1 Bradycardia, unspecified (principal); T44.7X5A Adverse effect of beta-adrenoreceptor antagonists, initial encounter; U07.1 COVID-19; J96.11 Chronic respiratory failure with hypoxia; N17.9 Acute kidney failure, unspecified; I13.0 Hypertensive heart and chronic kidney disease with heart failure and stage 1 through stage 4 chronic kidney disease, or unspecified chronic kidney disease; E11.22 Type 2 diabetes mellitus with diabetic chronic kidney disease; N18.31 Chronic kidney disease, stage 3a; I50.22 Chronic systolic (congestive) heart failure; J44.9 Chronic obstructive pulmonary disease, unspecified; N40.0 Benign prostatic hyperplasia without lower urinary tract symptoms; K21.9 Gastro-esophageal reflux disease without esophagitis; E66.01 Morbid (severe) obesity due to excess calories; Z68.33 Body mass index [BMI] 33.0-33.9, adult; Z87.891 Personal history of nicotine dependence; Z90.49 Acquired absence of other specified parts of digestive tract; Z79.82 Long term (current) use of aspirin; Z79.4 Long term (current) use of insulin; Z79.899 Other long term (current) drug therapy; Z88.5 Allergy status to narcotic agent; Z88.8 Allergy status to other drugs, medicaments and biological substances; Z23 Encounter for immunization
CPT/HCPCS: 36415; 80048; 82947; 85025; 85027; A9270-GY; J1100; J1644; J7030